=== PATIENT | female | born 1985 | race Caucasian/White ===

== ENCOUNTER → 2016-08-13 | Day surgery (SDC) | payer OTHER ==
[~2016-08-13] MED LIST: CHEWABLE ASPIRI81 MG PO; CINNAMON PO; FISH OIL300 MG PO; METOPROLOL TART25 MG PO; PRENATAL VITAMI1 TA5 PO; SYNTHROID300 MCG PO; TURMERIC500 MG PO; VITAMIN D1000 UNI1 PO
--- NOTE | ~2016-08-13 | OR ---
Unit #: [id number] #: [id number] Patient: VICKIE DOMÍNGUEZ [id number] [address] [place], [place] [address] [id number] MR#: [id number] NAME: VICKIE DOMÍNGUEZ ROOM: Date of Procedure: 08/13/2016 Admission Date: 08/13/2016 Surgeon: Andre Tracey M.D. : 1985 Attending Physician: Andre Tracey M.D. Primary Care Physician: Elise Jiménez M.D. OPERATIVE REPORT PROCEDURES PERFORMED 1. Colonoscopy with polypectomy. 2. Esophagogastroduodenoscopy with biopsy. PREOPERATIVE DIAGNOSES Chronic abdominal pain, gastroesophageal reflux disease, rectal bleeding, chronic diarrhea. POSTOPERATIVE DIAGNOSES Colorectal polyps, internal hemorrhoids, reflux esophagitis. ANESTHESIA Monitored anesthesia care. DESCRIPTION OF PROCEDURE COLONOSCOPY PROCEDURE: After adequate explanation of the risks, benefits and alternatives of the procedure, an informed consent was obtained from the patient. The patient was brought to the Endoscopy Suite. Intravenous sedation was administered. The patient was placed in the left lateral position. The colonoscope was introduced into the rectum and advanced to the cecum without difficulty. Once in the cecum, the anatomic landmarks were identified very well. The ileocecal valve was examined. The appendiceal orifice was examined. The scope was slowly withdrawn with the findings as noted in the next section. Adequate mucosal visualization of the colonic mucosa was done upon slow withdrawal. The scope was slowly withdrawn into the rectum and a retroflexed view was also obtained. The scope was withdrawn. The patient tolerated the procedure very well. EGD PROCEDURE: After adequate explanation of the risks, benefits and alternatives of the procedure, an informed consent by the patient was obtained. The patient was brought to the Endoscopy Suite. Intravenous sedation was administered. With the patient lying in the left lateral position and after placing the mouthpiece in the mouth, after adequate visualization of the vocal cords, a laryngoscopy was also done and the scope was passed via cricopharyngeus into the esophagus. After this, the esophageal mucosa was examined with an examination of the proximal, middle, and distal esophagus. The scope was then advanced into the stomach where a retroflexed view was obtained to examine the fundus and the angularis incisura. The lesser and greater curvature were examined. After adequate air insufflation, the antrum was then examined. The scope was then advanced to the pylorus and the scope was passed via pylorus up Unit #: [id number] #: [id number] Patient: VICKIE DOMÍNGUEZ to the descending duodenum. The duodenal bulge and descending duodenum were examined very well. The scope was slowly withdrawn. The patient tolerated the procedure very well. COLONOSCOPY FINDINGS CECUM: Normal. ILEOCECAL VALVE: Normal. APPENDICEAL VALVE: Normal. ASCENDING COLON: Normal. TRANSVERSE COLON: Normal. DESCENDING COLON: Normal. SIGMOID COLON: 8 mm polypoid lesion removed with fulguration. No specimen obtained. RECTUM: 5 mm polyp removed with snare polypectomy. No specimen obtained. Retroflexed view showed evidence of nonbleeding internal hemorrhoids. Scope withdrawal time was over 6 minutes. EGD FINDINGS LARYNGOSCOPY: ESOPHAGUS: Proximal esophagus, normal. Middle esophagus, normal. Distal esophagus, evidence of erosive esophagitis. Multiple biopsies obtained at 38 cm. No evidence of stricture was noted. STOMACH: Fundus, normal. LESSER CURVATURE: Normal. GREATER CURVATURE: Normal. ANGULARIS INCISURA: Normal. ANTRUM: Normal. DUODENUM: Bulb normal. DESCENDING DUODENUM: Normal. ASSESSMENT AND PLAN The patient is a 31-year-old female presenting with chronic abdominal pain, diarrhea, gastroesophageal reflux disease. The patient placed on proton pump inhibitors. In addition to lifestyle and dietary modifications, antispasmodic agents will be used. The patient also placed on topical therapy for internal hemorrhoids. Dictated by... Lyssa Edward/liza TD: 08/14/2016 04:35 JOB #: [id number] OPERATIVE REPORT X Andre Tracey MD X PROCEDURE OPERATIVE NOTE
== END | disposition home or self-care (01) ==
LOC: COPS 10:26
DX: D12.5 Benign neoplasm of sigmoid colon (principal); K62.1 Rectal polyp; K20.8 Other esophagitis; K52.9 Noninfective gastroenteritis and colitis, unspecified; K64.8 Other hemorrhoids; K21.9 Gastro-esophageal reflux disease without esophagitis; G57.30 Lesion of lateral popliteal nerve, unspecified lower limb; E03.9 Hypothyroidism, unspecified; Z79.82 Long term (current) use of aspirin; Z79.899 Other long term (current) drug therapy; Z90.49 Acquired absence of other specified parts of digestive tract; Z98.890 Other specified postprocedural states
CPT/HCPCS: 84703; 88305; 88313; 88323; 88341; 88342; 88368; 88369; J2250